=== PATIENT | male | born 1940 | race Caucasian/White ===

== ENCOUNTER → 2016-12-10 | Outpatient (CLI) | payer OTHER ==
--- NOTE | 2016-12-10 11:59 | REP ---
BILATERAL MAMMOGRAM: Bilateral mammography is performed in the MLO and CC projections. The patient reports a palpable abnormality in the right retroareolar region. Correlation is made with ultrasound of the right breast 12/06/2016. There appears to be a focal irregular mass in the right retroareolar region. Margins are irregular with a few radiating spiculated densities. It measures approximately 2 cm in maximum diameter. This correlates with the ultrasound findings of a 2 cm right retroareolar mass. The findings are suspicious and biopsy is recommended. IMPRESSION: ACR 4 suspicious. Irregular right retroareolar mass suspicious for neoplasm. Recommend ultrasound-guided biopsy. BI-RADS/ACR category 4 mammogram. Suspicious abnormality - biopsy should be considered. Usually requires biopsy. This mammogram was interpreted with the aid of an FDA-approved computer-aided detection system. The patient states she/he had a clinical breast exam in November 2016. Patient letter [id number]. Signed by Tate Howell MD 12/10/2016 04:01 P
== END ==
LOC: M RAD 10:16
PROVIDERS: ATTEND Family Medicine
DX: N63 Unspecified lump in breast (principal)

== ENCOUNTER → 2017-01-18 | Outpatient (CLI) | payer OTHER ==
[~2017-01-18] MED LIST: LIDOCAINE 1% MDV 20ML VIAL As Ordered ONE
--- NOTE | 2017-01-18 16:51 | REP ---
RIGHT BREAST ULTRASOUND GUIDED BIOPSY: The procedure was performed by ADAN Epperson under the direct supervision of Dr. Howell. The procedure along with its risks, benefits, and complications were discussed with the patient prior to the examination. Informed consent was obtained both verbally and written. The patient was identified in the ultrasound suite and placed in a supine position. The right breast was interrogated with ultrasound. An appropriate site was chosen for needle entry and this area was marked, prepped, and draped in the usual sterile fashion. A procedural time out was performed to ensure the correct, patient, site, and procedure were being performed. Local infiltrative anesthesia was achieved using 1% Xylocaine. A medial approach to the target was used. The mammotome biopsy device was advanced to the target. A total of 7 core biopsy specimens were obtained with ultrasound imaging documenting needle placement for each pass. Specimens were placed in Formalin and sent to the lab for further evaluation. Results are pending. Following the procedure wound was cleaned and compressed. Steri-strips and sterile gauze were applied and the patient was given post-biopsy instructions. The patient tolerated the procedure well and had no immediate complications. IMPRESSION: Uncomplicated ultrasound guided core biopsy of a right breast mass, pathology is pending. Reviewed by ADAN Martinez 01/18/2017 06:20 PEdited and Signed by Tate Howell MD 01/21/2017 04:09 P
== END ==
LOC: M RADPRO 12:07
PROVIDERS: ATTEND Surgery
DX: C50.921 Malignant neoplasm of unspecified site of right male breast (principal); Z72.0 Tobacco use; Z79.899 Other long term (current) drug therapy

== ENCOUNTER → 2017-03-12 | Outpatient (REF) | payer OTHER ==
[2017-03-12 13:26] LABS: INR 0.95
== END ==
LOC: M LAB REF 12:54
PROVIDERS: ATTEND Internal Medicine Medical Oncology
DX: C50.129 Malignant neoplasm of central portion of unspecified male breast (principal)